=== PATIENT | male | born 1990 | race Caucasian/White ===

== ENCOUNTER 2022-01-15 11:49 | Emergency (ER) | payer SELFPAY ==
[~2022-01-15] VITALS: Ht 177.8 cm; Wt 110.0 kg
[~2022-01-15 11:49] MED LIST: NO MEDS
[2022-01-15] MEDS ORDERED: PERMETHRIN 5% CREAM 60GM TOP ONE (12:45)
[2022-01-15] MEDS ORDERED: HALOPERIDOL LACTATE 5MG/ML VIAL IM ONE (18:15)
[2022-01-15] MEDS ORDERED: DIPHENHYDRAMINE 50MG/ML VIAL IM ONE (18:15)
[2022-01-15] MEDS ORDERED: LORAZEPAM 2MG/ML CPJ IM ONE (18:15)
[2022-01-15 19:41] LABS: BASOPHILS % 0.4 % (0.0-2.0); EOSINOPHILS % 13.2 % (0.0-5.0); HEMATOCRIT. 31.3 % (42.0-52.0); HEMOGLOBIN. 9.5 g/dL (14.0-18.0); LYMPHOCYTES % 12.3 % (20.0-50.0); MEAN CORPUSCULAR HEMOGLOBIN 25.4 pg (28.0-32.0); MEAN CORPUSCULAR VOLUME 83.5 fL (80.0-94.0); MEAN PLATELET VOLUME 7.7 fl (7.4-10.4); MONOCYTES % 10.7 % (2.0-8.0); NEUTROPHILS % 63.4 % (40.0-76.0); PLATELET 414 x1000/uL (130-400); RED BLOOD CELL COUNT 3.74 mill/uL (4.7-6.1); RED CELL DISTRIBUTION WIDTH 15.6 % (11.6-14.6)
[2022-01-15 20:02] LABS: CHLORIDE 108 mEq/L (98-107)
[2022-01-15 20:09] LABS: ETHANOL BLOOD < 10 mg/dL
[2022-01-16] MEDS: RISPERIDONE 1MG TABLET PO SCH ×2 (13:11→21:33)
[2022-01-17] MEDS: RISPERIDONE 1MG TABLET PO SCH ×2 (08:40→20:27)
[2022-01-18] MEDS: RISPERIDONE 1MG TABLET PO SCH (09:01)
[2022-01-18 15:53] VITALS: BP 143/92
== END 2022-01-18 15:57 | disposition home or self-care (01) ==
LOC: ER 11:49
DX: F23 Brief psychotic disorder (principal); F17.290 Nicotine dependence, other tobacco product, uncomplicated; Z20.822 Contact with and (suspected) exposure to COVID-19
CPT/HCPCS: 36415; 80053; 80307; 80320; 80329; 82140; 85025; 96372; 99285; C9803; J1200; J1630; J2060; U0003; U0005; G0480